=== PATIENT | female | born 1985 | race African-American/Black ===

== ENCOUNTER 2022-02-22 09:13 | Day surgery (SDC) | payer OTHER ==
[~2022-02-22 09:13] MED LIST: Lactated Ringers 1,000 ML IV SCH; Sodium Chloride 0.9% 10 ML Syringe FLUSH PRN; Sodium Chloride 0.9% 2.5 ML Syringe FLUSH PRN; Sodium Chloride 0.9% 20 ML SDV IV PRN
[2022-02-22] MEDS ORDERED: Propofol 200 MG/20 ML SDV ONE (11:02)
[2022-02-22] MEDS ORDERED: Glycopyrrolate 0.2 MG/ML SDV ONE (11:02)
[2022-02-22] MEDS ORDERED: Midazolam 1 MG/ML 2 ML SDV ONE (11:02)
[2022-02-22] MEDS ORDERED: fentaNYL 100 MCG/2 ML SDV ONE (11:02)
[2022-02-22] MEDS ORDERED: Ondansetron 4 MG/2 ML SDV ONE (11:02)
[2022-02-22] MEDS ORDERED: Lidocaine 2% 5 ML SDV ONE (11:03)
== END 2022-02-22 12:55 | disposition home or self-care (01) ==
LOC: MW.SDS 09:13
PROVIDERS: ATTEND Surgery
DX: D12.3 Benign neoplasm of transverse colon (principal); D12.2 Benign neoplasm of ascending colon; K29.80 Duodenitis without bleeding; K29.50 Unspecified chronic gastritis without bleeding; G89.29 Other chronic pain; Z91.048 Other nonmedicinal substance allergy status; Z88.1 Allergy status to other antibiotic agents
CPT/HCPCS: 00813; 81025; J2250; J2405; J2704; J3010; J3490; J7120

== ENCOUNTER 2023-10-02 10:10 | Emergency (ER) | payer BC ==
[2023-10-02 11:21] LABS: CORONAVIRUS COVID-19 NAA NEGATIVE (NEGATIVE); INFLUENZA A NAA NEGATIVE (NEGATIVE); INFLUENZA B NAA NEGATIVE (NEGATIVE); RESPIRATORY SYNCYTIAL VIR NAA NEGATIVE (NEGATIVE)
== END 2023-10-02 11:59 | disposition home or self-care (01) ==
LOC: MW.ED 10:10
DX: R07.89 Other chest pain (principal); Z88.1 Allergy status to other antibiotic agents; Z91.048 Other nonmedicinal substance allergy status
CPT/HCPCS: 0241U; 71046; 93005; 99285; 93010; 99283